=== PATIENT | male | born 1980 | race Caucasian/White ===

== ENCOUNTER 2017-01-21 18:49 | Emergency (ER) | payer SELFPAY ==
--- NOTE | 2017-01-21 20:17 | NUR ---
PATIENT WISHED NOT TO BE TRIAGE OR TO BE SEEN BY ERMD. LEFT WITHOUT BEING TRIAGE OR SEEN BY ERMD
[2017-01-22] MEDS ORDERED: HYDR-3641 PO (09:03)
[2017-01-22] MEDS ORDERED: AMPH10CA3 PO (09:03)
== END 2017-01-21 20:20 | disposition left against medical advice (07) ==
LOC: ER 18:49
DX: Z53.21 Procedure and treatment not carried out due to patient leaving prior to being seen by health care provider (principal)

== ENCOUNTER 2017-01-22 08:47 | Emergency (ER) | payer OTHER ==
[~2017-01-22] VITALS: Ht 182.9 cm; Wt 74.8 kg
[2017-01-22] MEDS ORDERED: AMPH10CA3 PO (09:03)
[2017-01-22] MEDS ORDERED: HYDR-3641 PO (09:03)
[2017-01-22] MEDS ORDERED: KETOROLAC TROMETHAMINE 15 MG INJ IV ONE (09:45)
[2017-01-22] MEDS ORDERED: METOCLOPRAMIDE HCL 10 MG/2 ML VIAL IV ONE (09:45)
[2017-01-22] MEDS ORDERED: IV NORMAL SALINE 1000 ML BAG IV ONE (09:45)
[2017-01-22] MEDS ORDERED: KETOROLAC TROMETHAMINE 15 MG INJ ONE (10:04)
[2017-01-22] MEDS ORDERED: METOCLOPRAMIDE HCL 10 MG/2 ML VIAL ONE (10:04)
[2017-01-22 10:06] LABS: HEMATOCRIT 40.1 % (36.7-47.1); HEMOGLOBIN 13.9 g/dL (12.5-16.3); MEAN CORPUSCULAR HEMOGLOBIN 30.5 uug (23.8-33.4); MEAN CORPUSCULAR HGB CONC 35 g/dL (32.5-36.3); MEAN CORPUSCULAR VOLUME 87.5 fL (73.0-96.2); MONOCYTES % (AUTO) 7.1 % (0.0-11.0); NEUTROPHILS % (AUTO) 68.8 % (38.5-71.5); PLATELET COUNT (AUTO) 147 K/uL (152-348); RED BLOOD CELL COUNT(AUTO) 4.58 MIL/uL (4.06-5.63); WHITE BLOOD COUNT (AUTO) 3.9 K/uL (3.6-10.2)
[2017-01-22 10:07] LABS: EOSINOPHILS % (AUTO) 0.1 % (0.0-7.0); LYMPHOCYTES # (AUTO) 0.9 K/uL (20.0-40.0); MONOCYTES # (AUTO) 0.3 K/uL (2.0-10.0); NEUTROPHILS # (AUTO) 2.7 K/uL (1.8-8.9)
[2017-01-22 10:10] LABS: CREATININE 1.2 mg/dL (0.6-1.3); POTASSIUM 4.1 mmol/L (3.5-5.1)
[2017-01-22 10:19] LABS: BILIRUBIN,DIRECT 0.1 mg/dL (0.0-0.2); BILIRUBIN,TOTAL 0.4 mg/dL (0.2-1.0); TOTAL PROTEIN, SERUM 6.6 g/dL (6.4-8.2)
[2017-01-22 10:36] LABS: *BILIRUBIN,URIN NEGATIVE (NEGATIVE); *BLOOD, URINE NEGATIVE (NEGATIVE); *CLARITY,URINE CLEAR (CLEAR); *COLOR,URINE YELLOW (YELLOW); *KETONES,URINE NEGATIVE (NEGATIVE); *PROTEIN,URINE NEGATIVE (NEGATIVE); *UROBILINOGEN,URINE 0.2 E.U./dl (NORMAL); LEUKOCYTE ESTERASE ,URINE NEGATIVE (NEGATIVE); NITRITE, URINE NEGATIVE (NEGATIVE); PH,URINE 6.5 (5.0-8.0); UGLUCOSE NEGATIVE (NEGATIVE)
[2017-01-22 10:44] LABS: BACTERIA,URINE NONE SEEN /HPF (NONE SEEN); RBC,URINE 0-3 /HPF (0-3); SQUAMOUS EPITHELIAL CELL,UR FEW /HPF (NONE SEEN); WBC,URINE 0-3 /HPF (0-3)
--- NOTE | 2017-01-22 11:14 | NUR ---
Patient discharged to home in stable conditon. Written and verbal after care instructions given. Patient verbalizes understanding of instructions.pt walks in steady gait. pt says feels better.
[2017-01-22 11:17] VITALS: BP 109/71
[2017-01-23 07:06] LABS: HEPATITIS A AB, IgM Negative (Negative); HEPATITIS A AB, TOTAL Positive (Negative); HEPATITIS B SURFACE AB Non Reactive (.); HEPATITIS B SURFACE AG Negative (Negative)
== END 2017-01-22 11:18 | disposition home or self-care (01) ==
LOC: ER 08:47
DX: A09 Infectious gastroenteritis and colitis, unspecified (principal); B19.9 Unspecified viral hepatitis without hepatic coma; F90.9 Attention-deficit hyperactivity disorder, unspecified type
CPT/HCPCS: 36415; 70030-TC; 83605; 83690; 85025; 86706; 86708; 86709; 86803; 87040; 87077; 87340; A4663; J1885; J2765; J7030